=== PATIENT | male | born 1965 | race African-American/Black ===

== ENCOUNTER 2020-01-23 12:36 | Emergency (ER) | payer BC ==
[~2020-01-23] VITALS: Ht 177.8 cm; Wt 89.8 kg
[2020-01-23 13:46] LABS: ANION GAP 13 mmol/L (7-16); BUN 10 mg/dL (7-18); CALCIUM 9.1 mg/dL (8.5-10.1); CHLORIDE 105 mmol/L (98-107); CO2 20 mmol/L (21-32); CREATININE 1.2 mg/dL (0.7-1.3); GLUCOSE 146 mg/dL (74-106); POTASSIUM 3.8 mmol/L (3.5-5.1); SODIUM 138 mmol/L (136-145)
[2020-01-23 13:55] LABS: TROPONIN-I <0.06 ng/mL (<0.06)
[2020-01-23 14:32] LABS: ABSOLUTE NEUTROPHILS 3.3 thou/uL (1.4-8.2); BASOPHILS 0.5 % (0.0-2.0); EOSINOPHILS 2.6 % (0.0-3.0); HEMOGLOBIN 14.5 gm/dL (14.0-18.0); LYMPHOCYTES 26.8 % (24.0-44.0); MCH 29.9 pg (26.0-34.0); MCHC 34.5 g/dL (28.0-37.0); MCV 86.8 fL (80.0-100.0); MONOCYTES 7.2 % (1.0-8.0); PLATELET COUNT 264 thou/uL (150-400); POLYS 62.9 % (36.0-66.0); RBC 4.84 mil/uL (4.50-6.00); WBC 5.2 thou/uL (4.0-11.0)
[2020-01-23] MEDS ORDERED: PREDNISONE50 MG PO (15:30)
[2020-01-23] MEDS ORDERED: VENTOLIN HFA 1818 GM INH (15:30)
[2020-01-23 15:48] VITALS: BP 121/88
--- NOTE | 2020-01-24 08:44 | EKG ---
[facility] [place] [address] ELECTROCARDIOGRAM REPORT Name: ROLA PATE Room #: DEP [facility]#: [id number] Admission: 01/23/20 Attend Phys: Discharge: 01/23/20 Date of : 63 Report #: [id number] THIS REPORT FOR: cc: Gina Navarro MD, Julie MD Santiago, Patrick MD [facility] ~ THIS REPORT FOR: //name// [facility] ED Test Date: 2020-01-23 Test Time: 12:46:10 Pat Name: ROLA PATE Department: Room: Gender: Die [employer] Die [employer]: DOMINGA : 1965 Requested By: Rola Mae Order Number: [id number] MD: Raymon Desai Measurements Intervals [place] Rate: 83 P: 85 AL: 175 QRS: 66 QRSD: 93 T: 55 QT: 380 QTc: 447 Interpretive Statements Sinus rhythm Probable left atrial enlargement No previous ECG available for comparison Electronically Signed On 01-24-2020 8:43:55 CDT by Raymon Desai [email or web address] <ELECTRONICALLY SIGNED> By: Raymon Desai MD, FAC 01/24/20 [id number] 1246 Raymon Desai MD, FACC /EPI
== END 2020-01-23 15:48 | disposition home or self-care (01) ==
LOC: ER 12:36
PROVIDERS: Emergency Medicine
DX: J45.901 Unspecified asthma with (acute) exacerbation (principal); F17.210 Nicotine dependence, cigarettes, uncomplicated; Z85.46 Personal history of malignant neoplasm of prostate